=== PATIENT | male | born 1935 | race Caucasian/White ===

== ENCOUNTER 2016-09-26 14:15 | Emergency (ER) | payer MEDICARE, BC ==
[~2016-09-26] VITALS: Ht 162.6 cm; Wt 68.0 kg
[~2016-09-26 14:15] MED LIST: ALLO100T PO; AMAN100C18 PO; AMIO200T2 PO; ANTI1CAP2 PO; ASPI-983 PO; CARB1TAB17 PO; CARB1TAB19; CARB1TAB19 PO; CHOL4PAC2 PO; DIAZ5TAB3 PO; DIPH25CA79 PO; DONE10TA41 PO; FERR-84 PO; FLUT16SP22 NS; FURO40TA4 PO; HYDR-700 PO; HYDR50CA PO; IBUP-30 PO; L.AC1CAP6 PO; LIOT5TAB3 PO; MELA1TAB20 PO; METH4TAB PO; METO-333 PO; NF-PIME1% TP; PANCREAZE DR 41 EACH PO; SCOP1PAT TOP; SPIR25TA3 PO; TAMS0.4C2 PO; TRIA15CR TOP
--- NOTE | 2016-09-26 14:41 | ED Lower Extremity ---
General Chief Complaint: Lower Extremity Stated Complaint: LEFT FOOT REDNESS/SWELLING Nursing Triage Note: BROUGHT IN BY DAUGHTER IN . SHE STATES SHE NOTICED DADS LEFT FOOT BECOMING SWOLLEN ET RED TODAY. CALLED [facility] OFFICE BUT THEY DID NOT RETURN THE CALL SO SHE BROUGHT HIM HERE. DR HUNTER OFFICE CALLED HER BACK WHILE IN ROOM AND SAID DR WHITTEN THOUGHT IT MIGHT BE GOUT BUT PT DENIES SEVERE PAIN LIKE HE HAS HAD IN THE PAST WITH GOUT. Nursing Sepsis Screen: No Definite Risk Source: patient, family (daughter) Exam Limitations: no limitations History of Present Illness Time seen by provider: 14:40 Initial Comments 81-year-old male patient presents to the emergency department complaints of left foot swelling and erythema. Daughter reports she contacted Dr. Whitten's office, but have not heard back from them and 30 minutes. She decided to bring him to the emergency department to be evaluated. While in the emergency department exam room patient was contacted by Dr. Whitten's office with diagnosis of gout. Daughter refuses gout medication as suggested by Dr. Whitten's office. Denies any known injury. Denies fevers at home. Patient is noted to have a temperature of 100.0F in the ED. Denies h/o DVT. Location Injury Occurred: denies known injury Onset: this morning Pain/Injury Location: left foot Method of Injury: unknown Modifying Factors: Worse With Other (denies modifying factors) Allergies and Home Medications Allergies Coded Allergies: No Known Drug Allergies (Unverified , 03/02/16) Home Medications Allopurinol 100 Mg Tablet 200 MG PO DAILY (Reported) TAKES 2 (100MG) TABLETS Amantadine HCl 100 Mg Capsule #60 1 CAP PO BID (Reported) Amiodarone HCl 200 Mg Tablet 200 MG PO DAILY (Reported) Antiox#10/Om3/Dha/Epa/Lut/Zeax 1 Each Capsule 1 CAP PO DAILY (Reported) Aspirin 81 Mg Tablet.dr 81 MG PO DAILY (Reported) Carbidopa/Levodopa 1 Each Tablet 0.5 TAB PO QID (Reported) TAKES 1/2 (25-100MG) TABLET Cholestyramine (with Sugar) 4 Gm Powd.pack 1 PACKET PO DAILY PRN PRN DIARRHEA ( Reported) Clindamycin HCl 300 Mg Capsule #28 300 MG PO QID Prescribed by: RL ESCOBEDO on 09/26/16 1709 Diphenhydramine HCl 25 Mg Capsule 25-50 MG PO HS PRN PRN SLEEP (Reported) TAKES 1 TO 2 (25MG) CAPSULES Donepezil HCl 10 Mg Tablet 10 MG PO HS (Reported) Ferrous Sulfate 325 Mg Tablet 325 MG PO TID (Reported) Fluticasone Propionate 16 Gm [place].susp 2 SPRAY NS HS PRN PRN DRAINAGE (Reported ) Furosemide 40 Mg Tablet 40 MG PO DAILY (Reported) DR. THACKER INSTRUCTED TO HOLD TODAY 03-02-16 Hydroxyzine HCl 25 Mg Tablet #20 1 TAB PO TID (Reported) Hydroxyzine Pamoate 50 Mg Capsule #20 50 MG PO Q 4-6 HOURS Prescribed by: RAYA LEUNG on 08/28/1655 Ibuprofen 200 Mg Tablet 400 MG PO HS (Reported) TAKES 2 (200MG) TABLETS L.acidoph & Paracasei,B.lactis 1 Each Capsule 1 CAP PO DAILY (Reported) Liothyronine Sodium 5 Mcg Tablet 15 MCG PO DAILY (Reported) TAKES 3 (5MCG) TABLETS Lipase/Protease/Amylase 1 Each Capsule.dr 4,200 UNITS PO AC (Reported) Melatonin/Pyridoxine HCl (B6) 1 Each Tab.mphase 10 MG PO HS (Reported) Methylprednisolone 4 Mg Tab.ds.pk #1 4 MG PO UD Prescribed by: RAYA LEUNG on 08/28/1655 Metoprolol Tartrate 25 Mg Tablet 12.5 MG PO BID (Reported) TAKES 1/2 (25MG) TABLET Pimecrolimus 30 Gm Cream.gm. #1 30 GM TP BID Prescribed by: RAYA LEUNG on 08/28/1655 Scopolamine 1 Each Patch.td72 TOP Q72H PRN PRN NAUSEA (Reported) Spironolactone 25 Mg Tablet 25 MG PO DAILY (Reported) DR. THACKER INSTRUCTED TO HOLD TODAY 03-02-16 Tamsulosin HCl 0.4 Mg Cap.er.24h 0.4 MG PO DAILY (Reported) Triamcinolone Acetonide 15 Gm Cream..g. TOP DAILY PRN PRN ECZEMA (Reported) Constitutional: No chills, No diaphoresis, feverNo malaise Respiratory: coughNo orthopnea, No phlegm, No short of breath, No wheezing Cardiovascular: No chest pain, edema (left foot)No palpitations, No syncope Gastrointestinal: No abdominal pain, No constipation, No diarrhea, loss of appetiteNo nausea, No vomiting Genitourinary: no symptoms reported Musculoskeletal: No joint pain, joint swelling (left foot) Skin: see HPI change in color rash (chronic rash) Psychiatric/Neurological: No Symptoms Reported All Other Systems Reviewed Negative Unless Noted: Yes (Negative excepted noted.) Past Kgdxcmz-Ghqddu-Szjnht Hx Patient Social History Recent Foreign Travel: No Contact w/Someone Who Travel: No Recent Infectious Disease Expo: No Recent Hopitalizations: No Immunizations Up To Date Tetanus Booster (TDap): Unknown Seasonal Allergies Seasonal Allergies: Yes Surgeries HX Surgeries: Yes (implant in L BUTT CHEEK TO HELP WITH WITH BM. ) Surgeries: Cardiac, CABG, Orthopedic Respiratory Hx Respiratory Disorders: No Cardiovascular Hx Cardiac Disorders: Yes Cardiac Disorders: High Cholesterol, Hypertension Neurological Hx Neurological Disorders: Yes Neurological Disorders: Dementia, Vertigo Genitourinary Hx Genitourinary Disorders: Yes (RENAL CANCER) Genitourinary Disorders: Renal Failure Gastrointestinal Hx Gastrointestinal Disorders: Yes Gastrointestinal Disorders: Gastroesophageal Reflux, Lozada's Esophagus, Chronic Constipation Musculoskeletal Hx Musculoskeletal Disorders: Yes Musculoskeletal Disorders: Arthritis Endocrine Hx Endocrine Disorders: No HEENT HX ENT Disorders: Yes (ALLERGIES/SINUS PROBLEMS) Cancer Hx Cancer: Yes Cancer: Kidney Psychosocial Hx Psychiatric Problems: No Integumentary HX Skin/Integumentary Disorder: Yes Skin/Integumentary Disorders: Eczema, Pruritis Reviewed Nursing Assessment Reviewed/Agree w Nursing PMH: Yes Family Medical History Significant Family History: No Pertinent Family Hx Physical Exam Vital Signs Vital Sign - Last 12Hours 09/26/16 14:35 Temp 100.0 Pulse 69 Resp 18 B/P 161/86 Pulse Ox 99 O2 Delivery Room Air Capillary Refill : Less Than 3 Seconds General Appearance: WD/WN no apparent distress Cardiovascular: normal peripheral pulses regular rate, rhythm no murmur Respiratory: lungs clear normal breath sounds no respiratory distress Gastrointestinal: non tender softNo distended Legs: bilateral leg non-tender, bilateral leg normal range of motion, bilateral leg no evidence of injury, bilateral leg other (maculopapular rash of the BLE (daughter reports rash is chronic)) Knees: bilateral knee non-tender, bilateral knee normal range of motion, bilateral knee no evidence of injury, bilateral knee other (maculopapular rash of the BLE (daughter reports rash is chronic)) Ankles: bilateral ankle non-tender, bilateral ankle normal range of motion, bilateral ankle no evidence of injury, bilateral ankle other (maculopapular rash of the BLE (daughter reports rash is chronic)) Feet: bilateral foot non-tender, bilateral foot normal range of motion, bilateral foot no evidence of injury, left foot swelling (1+ pedal edema of the left foot), bilateral foot other (maculopapular rash of the BLE (daughter reports rash is chronic)) Neurologic/Tendon: normal sensation normal motor functions normal tendon functions responds to pain no evidence tendon injury Neurologic/Psychiatric: alert normal mood/affect oriented x 3 Skin: warm/dryNo cyanosis, No cool, No diaphoresis, No mottled, rash ( maculopapular rash of the BLE (daughter reports rash is chronic). erythema, warmth, and 1+ pedal edema of the left foot.) Progress/Results/Core Measures Results/Orders Lab Results Laboratory Tests Test 09/26/16 15:25 09/26/16 16:15 Range/Units Alanine Aminotransferase (ALT/SGPT) < 6 0-55 U/L Albumin 3.5 3.2-4.5 G/DL Alkaline Phosphatase 144 H 40-136 U/L Anion Gap 9 5-14 MMOL/L Aspartate Amino Transf (AST/SGOT) 16 5-34 U/L BUN/Creatinine Ratio 17 Band Neutrophils 0 % Basophils # (Auto) 0.1 0.0-0.1 10^3/uL Basophils % (Manual) 1 % Basophils (%) (Auto) 0 0-10 % Blood Morphology Comment NORMAL Blood Urea Nitrogen 42 H 7-18 MG/DL Calcium Level 9.4 8.5-10.1 MG/DL Carbon Dioxide Level 27 21-32 MMOL/L Chloride Level 107 98-107 MMOL/L Creatinine 2.46 H 0.60-1.30 MG/DL Eosinophils # (Auto) 1.2 H 0.0-0.3 10^3/uL Eosinophils % (Manual) 8 % Eosinophils (%) (Auto) 8 0-10 % Estimat Glomerular Filtration Rate 25 Glucose Level 93 70-105 MG/DL Hematocrit 34 L 40-54 % Hemoglobin 11.2 L 13.3-17.7 G/DL Lactic Acid Level 0.9 0.5-2.0 MMOL/L Lymphocytes # (Auto) 1.1 1.0-4.0 X 10^3 Lymphocytes % (Manual) 11 % Lymphocytes (%) (Auto) 8 L 12-44 % Mean Corpuscular Hemoglobin 32 25-34 PG Mean Corpuscular Hemoglobin Concent 33 32-36 G/DL Mean Corpuscular Volume 98 80-99 FL Mean Platelet Volume 9.8 7.4-10.4 FL Monocytes # (Auto) 1.0 0.0-1.0 X 10^3 Monocytes % (Manual) 3 % Monocytes (%) (Auto) 7 0-12 % Neutrophils # (Auto) 10.6 H 1.8-7.8 X 10^3 Neutrophils % (Manual) 77 % Neutrophils (%) (Auto) 76 H 42-75 % Platelet Count 224 130-400 10^3/uL Potassium Level 4.7 3.6-5.0 MMOL/L Red Blood Count 3.50 L 4.35-5.85 10^6/uL Red Cell Distribution Width 14.1 10.0-14.5 % Sodium Level 143 135-145 MMOL/L Total Bilirubin 0.3 0.1-1.0 MG/DL Total Protein 6.2 L 6.4-8.2 G/DL Uric Acid 5.5 2.6-7.2 MG/DL White Blood Count 14.0 H 4.3-11.0 10^3/uL Urine Bacteria NONE /HPF Urine Bilirubin NEGATIVE NEGATIVE Urine Casts NONE /LPF Urine Clarity SLIGHTLY CLOUDY Urine Color YELLOW Urine Crystals NONE /LPF Urine Culture Indicated NO Urine Glucose (UA) NEGATIVE NEGATIVE Urine Ketones NEGATIVE NEGATIVE Urine Leukocyte Esterase NEGATIVE NEGATIVE Urine Mucus NEGATIVE /LPF Urine Nitrite NEGATIVE NEGATIVE Urine Protein 3+ H NEGATIVE Urine RBC RARE /HPF Urine RBC (Auto) NEGATIVE NEGATIVE Urine Specific [place] 1.010 L 1.016-1.022 Urine Urobilinogen NORMAL NORMAL MG/DL Urine WBC 0-2 /HPF Urine pH 8 5-9 My Orders Orders-RL ESCOBEDO L PA Cbc With Automated Diff (09/26/16 14:55) Comprehensive Metabolic Panel (09/26/16 14:55) Saline Lock/Iv-Start (09/26/16 14:55) Ns Iv 1000 Ml (Sodium Chloride 0.9%) (09/26/16 14:55) Chest 1 View, Ap/Pa Only (09/26/16 14:55) Uric Acid (09/26/16 14:55) Foot, Left, 3 Views (09/26/16 15:06) Manual Differential (09/26/16 15:25) Lactic Acid Analyzer (09/26/16 16:00) Straight Cath (Urinary) (09/26/16 16:19) Clindamycin 900 Mg/50 Ml Ivpb (Cleocin P (09/26/16 16:30) Ua Culture If Indicated (09/26/16 16:28) General/Regular (09/26/16 Lunch) Medications Given in ED Current Medications Medications Dose Ordered Sig/Kathy Route Start Time Stop Time Status Last Admin Dose Admin Clindamycin Phosphate/Dextrose 50 ml @ 100 mls/hr ONCE ONCE IV 09/26/16 16:30 09/26/16 16:59 DC 09/26/16 16:46 100 MLS/HR Sodium Chloride 1,000 ml @ 0 mls/hr Q0M ONCE IV 09/26/16 14:55 09/26/16 14:58 DC 09/26/16 15:31 1,000 MLS/HR Vital Signs/I&O Vital Sign - Last 12Hours 09/26/16 09/26/16 14:35 17:42 Temp 100.0 97.8 Pulse 69 74 Resp 18 18 B/P 161/86 Pulse Ox 99 96 O2 Delivery Room Air Room Air Blood Pressure Mean: 111 Departure Communication Progress Notes Laboratory and diagnostic findings discussed with the patient and family. Plan for discharge to home with oral antibiotics. Patient instructed to follow-up with Dr. Whitten's office in the next 1-2 days for recheck and to call for appointment time. Return precautions were discussed with the patient and family as described in the discharge instructions of this report. All voiced understanding and agree with the treatment plan. Impression Impression: Primary Impression: Cellulitis of left foot excluding toes Additional Impression: Viral upper respiratory illness Disposition: 01 HOME, SELF-CARE Condition: Improved Departure-Patient Inst. Decision time for Depature: 17:08 Referrals: GARCIA WHITTEN DO (PCP/Family) Primary Care Physician Patient Instructions: Cellulitis (Skin Infection), Adult (DC), VIRAL RESP ILLNESS-ADULT Add. Discharge Instructions: All discharge instructions reviewed with patient and/or family. Voiced understanding. Medications as instructed. Continue usual home medications. Drink plenty of fluids. Elevate the left lower extremity on pillows. Ice packs or heating pads if needed for pain. Follow-up with Dr. Whitten in the next 1-2 days for recheck, call tomorrow morning for appointment time. Return to the emergency department for worsened redness, fever, open wound, shortness of air, or any other concerns. Scripts Clindamycin HCl (Cleocin HCl)300 Mg [id number] Mg PO QID #28 CAP Ref 0 Prov:RL ESCOBEDO 09/26/16 RL ESCOBEDO Sep 26, 2016 14:40
[2016-09-26] MEDS ORDERED: NS IV 1000 ML 1,000 ML IV ONE (14:55)
--- NOTE | 2016-09-26 15:38 | Diagnostic Imaging Report ---
EXAMINATION: Portable upright radiograph of the chest. INDICATION: Cough. FINDINGS: The lungs appear clear. The heart size is normal. There is no effusion or pneumothorax. The mediastinum and kalee appear unremarkable. Post CABG changes are seen. There is an old lateral mid left rib fracture. IMPRESSION: No acute process. Dictated by: Dictated on workstation # [id number]
[2016-09-26 15:41] LABS: BASOPHILS # (AUTO) 0.1 10^3/uL (0.0-0.1); BASOPHILS % (AUTO) 0 % (0-10); EOSINOPHILS # (AUTO) 1.2 10^3/uL (0.0-0.3); EOSINOPHILS % (AUTO) 8 % (0-10); LYMPHOCYTES # (AUTO) 1.1 X 10^3 (1.0-4.0); LYMPHOCYTES % (AUTO) 8 % (12-44); MEAN CORPUSCULAR HEMOGLOBIN 32 PG (25-34); MEAN CORPUSCULAR HGB CONC 33 G/DL (32-36); MEAN CORPUSCULAR VOLUME 98 FL (80-99); MEAN PLATELET VOLUME 9.8 FL (7.4-10.4); MONOCYTES % (AUTO) 7 % (0-12); NEUTROPHILS # (AUTO) 10.6 X 10^3 (1.8-7.8); NEUTROPHILS % (AUTO) 76 % (42-75); PLATELET COUNT 224 10^3/uL (130-400); RED CELL DISTRIBUTION WIDTH 14.1 % (10.0-14.5)
--- NOTE | 2016-09-26 15:42 | Diagnostic Imaging Report ---
Three views of the left foot. INDICATION: Left foot swelling and pain. FINDINGS: There is no fracture, dislocation or radiopaque foreign body. Joint alignment is satisfactory. IMPRESSION: Unremarkable exam. Dictated by: Dictated on workstation # [id number]
[2016-09-26 15:57] LABS: ALANINE AMINOTRANSFERASE < 6 U/L (0-55); ALBUMIN 3.5 G/DL (3.2-4.5); ANION GAP 9 MMOL/L (5-14); ASPARTATE AMINO TRANSFERASE 16 U/L (5-34); BILIRUBIN,TOTAL 0.3 MG/DL (0.1-1.0); BLOOD UREA NITROGEN 42 MG/DL (7-18); BUN/CREATININE RATIO 17; CALCIUM 9.4 MG/DL (8.5-10.1); CARBON DIOXIDE 27 MMOL/L (21-32); CHLORIDE 107 MMOL/L (98-107); CREATININE SERUM 2.46 MG/DL (0.60-1.30); GFR ESTIMATED 25; GLUCOSE 93 MG/DL (70-105); POTASSIUM 4.7 MMOL/L (3.6-5.0); SODIUM 143 MMOL/L (135-145); TOTAL PROTEIN 6.2 G/DL (6.4-8.2); URIC ACID 5.5 MG/DL (2.6-7.2)
[2016-09-26 16:11] LABS: BAND NEUTROPHILS 0 %; BASOPHILS % (MANUAL) 1 %; EOSINOPHILS % (MANUAL) 8 %; LYMPHOCYTES % (MANUAL) 11 %; NEUTROPHILS % (MANUAL) 77 %
[2016-09-26] MEDS ORDERED: CLINDAMYCIN 900 MG/50 ML IVPB 50 ML IV ONE (16:30)
[2016-09-26 16:35] LABS: BILIRUBIN,URINE NEGATIVE (NEGATIVE); KETONES,URINE NEGATIVE (NEGATIVE); LEUKOCYTE ESTERASE ,URINE NEGATIVE (NEGATIVE); NITRITE,URINE NEGATIVE (NEGATIVE); PH,URINE 8 (5-9); PROTEIN,URINE 3+ (NEGATIVE); UROBILINOGEN,URINE NORMAL (NORMAL)
[2016-09-26 16:41] LABS: WBC,URINE 0-2 /HPF
[2016-09-26] MEDS ORDERED: CLIN300C3 PO (17:09)
[2016-09-26 17:42] VITALS: BP 136/76
== END 2016-09-26 17:42 | disposition home or self-care (01) ==
LOC: EDUNIT# 14:15 → ER 14:17
DX: L03.116 Cellulitis of left lower limb (principal); J06.9 Acute upper respiratory infection, unspecified; I10 Essential (primary) hypertension; F03.90 Unspecified dementia, unspecified severity, without behavioral disturbance, psychotic disturbance, mood disturbance, and anxiety; Z79.82 Long term (current) use of aspirin; Z79.899 Other long term (current) drug therapy; Z95.1 Presence of aortocoronary bypass graft
CPT/HCPCS: 36415; 51701; 71010; 73630; 80053; 81000; 83605; 84550; 85007; 85027; 96361; 96365

== ENCOUNTER 2017-10-12 21:26 | Emergency (ER) | payer MEDICARE ==
[~2017-10-12] VITALS: Ht 162.6 cm; Wt 68.0 kg
[~2017-10-12 21:26] MED LIST changes: +CLIN300C3 PO
--- OUTSIDE RECORDS SUMMARY | 2017-10-12 21:31 | XMS REPORT | Continuity of Care Document ---
Author Author [facility] Organization [facility] Address Unknown Phone Unavailable Allergies Active Description Code Type Severity Reaction Onset Reported/Identified Relationship to Patient Clinical Status Yes No Allergy Information Available [id number] Drug Allergy Unknown N/A 2015 Yes No Known Drug Allergies [id number] Drug Allergy Unknown N/A 03/02/2016 Medications There is no data. Problems Date Dx Coded Attending Type Code Diagnosis Diagnosed By 12/15/2015 Ot I10 12/15/2015 Ot I25.10 01/05/2016 Ot I10 ESSENTIAL ( PRIMARY) HYPERTENSION 01/05/2016 Ot I25.10 ATHSCL HEART DISEASE OF [place] CORONARY 01/11/2016 Ot I10 ESSENTIAL ( PRIMARY) HYPERTENSION 01/11/2016 Ot I25.10 ATHSCL HEART DISEASE OF [place] CORONARY 01/11/2016 Ot 787.91 DIARRHEA 01/11/2016 Ot I10 ESSENTIAL ( PRIMARY) HYPERTENSION 01/11/2016 Ot I25.10 ATHSCL HEART DISEASE OF [place] CORONARY 01/11/2016 GARCIA GAN DO Ot Z79.899 OTHER GENERAL [place] (CURRENT) DRUG THERAPY 01/12/2016 GARCIA GAN DO Ot Z51.81 ENCOUNTER FOR THERAPEUTIC DRUG LEVEL MON 01/12/2016 GARCIA GAN DO Ot Z79.899 OTHER GENERAL [place] (CURRENT) DRUG THERAPY 01/12/2016 GARCIA GAN DO Ot Z51.81 ENCOUNTER FOR THERAPEUTIC DRUG LEVEL MON 01/12/2016 GARCIA GAN DO Ot Z79.899 OTHER LONG-TERM (CURRENT) DRUG THERAPY 03/02/2016 JO ANN AYALA MD Ot D72.829 ELEVATED WHITE BLOOD CELL COUNT, UNSPECI 03/02/2016 JO ANN AYALA MD Ot N18.9 CHRONIC KIDNEY DISEASE, UNSPECIFIED 03/05/2016 JO ANN AYALA MD Ot D72.829 ELEVATED WHITE BLOOD CELL COUNT, UNSPECI 03/05/2016 JO ANN AYALA MD Ot N18.9 CHRONIC KIDNEY DISEASE, UNSPECIFIED 03/14/2016 GAN GARCIA Marion Ot Z51.81 ENCOUNTER FOR THERAPEUTIC DRUG LEVEL MON 03/14/2016 GAN DO GARCIA Marion Ot Z79.899 OTHER LONG-TERM (CURRENT) DRUG THERAPY 03/22/2016 GANBARTOLO ROSENTHAL GARCIA Marion Ot Z51.81 ENCOUNTER FOR THERAPEUTIC DRUG LEVEL MON 03/22/2016 GAN DO, GARCIA Marion Ot Z79.899 OTHER LONG-TERM (CURRENT) DRUG THERAPY 03/22/2016 KIRSTIE SCHREIBER FACC, ALI FACP CCDS Ot I25.10 ATHSCL HEART DISEASE OF [place] CORONARY 03/22/2016 KIRSTIE SCHREIBER FACC, ALI FACP CCDS Ot I25.10 ATHSCL HEART DISEASE OF [place] CORONARY 03/27/2016 KIRSTIE SCHREIBER FACC, ALI FACP CCDS Ot G20 PARKINSON'S DISEASE 03/27/2016 KIRSTIE SCHREIBER FACC, ALI FACP CCDS Ot I12.9 HYPERTENSIVE CHRONIC KIDNEY DISEASE W ST 03/27/2016 KIRSTIE SCHREIBER FACC, ALI FACP CCDS Ot I25.10 ATHSCL HEART DISEASE OF [place] CORONARY 03/27/2016 KIRSTIE SCHREIBER FACC, ALI FACP CCDS Ot N18.4 CHRONIC KIDNEY DISEASE, STAGE 4 (SEVERE) 04/03/2016 KIRSTIE SCHREIBER FACC, ALI FACP CCDS Ot G20 [place]INSON'S DISEASE 04/03/2016 KIRSTIE SCHREIBER FACC, ALI FACP CCDS Ot I12.9 HYPERTENSIVE CHRONIC KIDNEY DISEASE W ST 04/03/2016 KIRSTIE SCHREIBER FACC, ALI FACP CCDS Ot I25.10 ATHSCL HEART DISEASE OF [place] CORONARY 04/03/2016 KIRSTIE SCHREIBER FACC, ALI FACP CCDS Ot N18.4 CHRONIC KIDNEY DISEASE, STAGE 4 (SEVERE) 04/19/2016 KIRSTIE SCHREIBER FACC, ALI FACP CCDS Ot G20 PARKINSON'S DISEASE 04/19/2016 KIRSTIE SCHREIBER FACC, ALI FACP CCDS Ot I12.9 HYPERTENSIVE CHRONIC KIDNEY DISEASE W ST 04/19/2016 KIRSTIE SCHREIBER FACC, ALI FACP CCDS Ot I25.10 ATHSCL HEART DISEASE OF [place] CORONARY 04/19/2016 KIRSTIE SCHREIBER FACC, ALI FACP CCDS Ot N18.4 CHRONIC KIDNEY DISEASE, STAGE 4 (SEVERE) 05/04/2016 KIRSTIE SCHREIBER FACC, ALI FACP CCDS Ot G20 [place]INSON'S DISEASE 05/04/2016 KIRSTIE SCHREIBER FACC, ALI FACP CCDS Ot I12.9 HYPERTENSIVE CHRONIC KIDNEY DISEASE W ST 05/04/2016 KIRSTIE SCHREIBER FACC, ALI FACP CCDS Ot I25.10 ATHSCL HEART DISEASE OF [place] CORONARY 05/04/2016 KIRSTIE SCHREIBER FACC, ALI FACP CCDS Ot N18.4 CHRONIC KIDNEY DISEASE, STAGE 4 (SEVERE) 05/07/2016 KIRSTIE SCHREIBER FACC, ALI FACP CCDS Ot G20 [place]INSON'S DISEASE 05/07/2016 KIRSTIE SCHREIBER FACC, ALI FACP CCDS Ot I12.9 HYPERTENSIVE CHRONIC KIDNEY DISEASE W ST 05/07/2016 KIRSTIE SCHREIBER FACC, ALI FACP CCDS Ot I25.10 ATHSCL HEART DISEASE OF [place] CORONARY 05/07/2016 KIRSTIE SCHREIBER FAC, ALI FACP CCDS Ot N18.4 CHRONIC KIDNEY DISEASE, STAGE 4 (SEVERE) 08/28/2016 XOCHITL DO, RAYA K Ot F03.90 UNSPECIFIED DEMENTIA WITHOUT BEHAVIORAL 08/28/2016 XOCHITL DO, RAYA K Ot G20 PARKINSON'S DISEASE 08/28/2016 XOCHITL DO, RAYA K Ot I10 ESSENTIAL (PRIMARY) HYPERTENSION 08/28/2016 XOCHITL DO, RAYA K Ot L29.9 PRURITUS, UNSPECIFIED 08/28/2016 XOCHITL DO, RAYA K Ot L30.9 DERMATITIS, UNSPECIFIED 08/28/2016 XOCHITL DO RAYA K Ot T78.40XA ALLERGY, UNSPECIFIED, INITIAL ENCOUNTER 08/28/2016 XOCHILT DO RAYA K Ot Z79.82 LONG-TERM (CURRENT) USE OF ASPIRIN 08/28/2016 XOCHITL DO RAYA K Ot Z79.899 OTHER GENERAL [place] (CURRENT) DRUG THERAPY 08/28/2016 XOCHITL DO RAYA K Ot Z95.1 PRESENCE OF AORTOCORONARY BYPASS GRAFT 08/28/2016 XOCHITL DO RAYA K Ot F03.90 UNSPECIFIED DEMENTIA WITHOUT BEHAVIORAL 08/28/2016 XOCHITL DO, RAYA K Ot G20 [place]INSON'S DISEASE 08/28/2016 XOCHITL DO, RAYA K Ot I10 ESSENTIAL (PRIMARY) HYPERTENSION 08/28/2016 XOCHITL DO, RAYA K Ot L29.9 PRURITUS, UNSPECIFIED 08/28/2016 RAYA LEUNG DO Ot L30.9 DERMATITIS, UNSPECIFIED 08/28/2016 RAYA LEUNG DO Ot T78.40XA ALLERGY, UNSPECIFIED, INITIAL ENCOUNTER 08/28/2016 RAYA LEUNG DO Ot Z79.82 LONG-TERM (CURRENT) USE OF ASPIRIN 08/28/2016 RAYA LEUNG DO Ot Z79.899 OTHER LONG-TERM (CURRENT) DRUG THERAPY 08/28/2016 RAYA LEUNG DO Ot Z95.1 PRESENCE OF AORTOCORONARY BYPASS GRAFT 09/04/2016 Ot 787.91 DIARRHEA 09/04/2016 Ot I10 ESSENTIAL ( PRIMARY) HYPERTENSION 09/04/2016 Ot I25.10 ATHSCL HEART DISEASE OF [place] CORONARY 09/04/2016 GARCIA GAN DO Ot Z51.81 ENCOUNTER FOR THERAPEUTIC DRUG LEVEL MON 09/04/2016 GARCIA GAN DO Ot Z79.899 OTHER GENERAL [place] (CURRENT) DRUG THERAPY 09/04/2016 KIRSTIE SCHREIBER FACC, ALI FACP CCDS Ot G20 [place]'S DISEASE 09/04/2016 KIRSTIE SCHREIBER FACC, ALI FACP CCDS Ot I12.9 HYPERTENSIVE CHRONIC KIDNEY DISEASE W ST 09/04/2016 KIRSTIE SCHREIBER FACC, ALI FACP CCDS Ot I25.10 ATHSCL HEART DISEASE OF [place] CORONARY 09/04/2016 KIRSTIE SCHREIBER FACC, ALI FACP CCDS Ot N18.4 CHRONIC KIDNEY DISEASE, STAGE 4 (SEVERE) 09/26/2016 RL AGUILA Ot F03.90 UNSPECIFIED DEMENTIA WITHOUT BEHAVIORAL 09/26/2016 RL AGUILA Ot I10 ESSENTIAL (PRIMARY) HYPERTENSION 09/26/2016 RL AGUILA Ot J06.9 ACUTE UPPER RESPIRATORY INFECTION, UNSPE 09/26/2016 RL AGUILA Ot L03.116 CELLULITIS OF LEFT LOWER LIMB 09/26/2016 RL AGUILA Ot M25.572 PAIN IN LEFT ANKLE AND JOINTS OF LEFT FO 09/26/2016 RL AGUILA Ot Z79.82 LONG-TERM (CURRENT) USE OF ASPIRIN 09/26/2016 RL AGUILA Ot Z79.899 OTHER LONG-TERM (CURRENT) DRUG THERAPY 09/26/2016 RL AGUILA Ot Z95.1 PRESENCE OF AORTOCORONARY BYPASS GRAFT 09/26/2016 Ot 787.91 DIARRHEA 09/26/2016 Ot I10 ESSENTIAL ( PRIMARY) HYPERTENSION 09/26/2016 Ot I25.10 ATHSCL HEART DISEASE OF [place] CORONARY 09/26/2016 GARCIA GAN DO Ot Z51.81 ENCOUNTER FOR THERAPEUTIC DRUG LEVEL MON 09/26/2016 GARCIA GAN DO Ot Z79.899 OTHER LONG-TERM (CURRENT) DRUG THERAPY 09/26/2016 KIRSTIE SCHREIBER FACC, ALI FACP CCDS Ot G20 [place]'S DISEASE 09/26/2016 KIRSTIE SCHREIBER FACC, ALI FACP CCDS Ot I12.9 HYPERTENSIVE CHRONIC KIDNEY DISEASE W ST 09/26/2016 KIRSTIE SCHREIBER FACElba, ALI FACP CCDS Ot I25.10 ATHSCL HEART DISEASE OF [place] CORONARY 09/26/2016 KIRSTIE SCHREIBER FACC, ALI FACP CCDS Ot N18.4 CHRONIC KIDNEY DISEASE, STAGE 4 (SEVERE) 09/27/2016 RL AGUILA Ot F03.90 UNSPECIFIED DEMENTIA WITHOUT BEHAVIORAL 09/27/2016 RL AGUILA Ot I10 ESSENTIAL (PRIMARY) HYPERTENSION 09/27/2016 RL AGUILA Ot J06.9 ACUTE UPPER RESPIRATORY INFECTION, UNSPE 09/27/2016 RL AGUILA Ot L03.116 CELLULITIS OF LEFT LOWER LIMB 09/27/2016 RL AGUILA Ot M25.572 PAIN IN LEFT ANKLE AND JOINTS OF LEFT FO 09/27/2016 RL AGUILA Ot Z79.82 GENER[place] (CURRENT) USE OF ASPIRIN 09/27/2016 RL AGUILA Ot Z79.899 OTHER LONG-TERM (CURRENT) DRUG THERAPY 09/27/2016 RL AGUILA Ot Z95.1 PRESENCE OF AORTOCORONARY BYPASS GRAFT 09/28/2016 RL AGUILA Ot F03.90 UNSPECIFIED DEMENTIA WITHOUT BEHAVIORAL 09/28/2016 RL AGUILA Ot I10 ESSENTIAL (PRIMARY) HYPERTENSION 09/28/2016 RL AGUILA Ot J06.9 ACUTE UPPER RESPIRATORY INFECTION, UNSPE 09/28/2016 RL AGUILA Ot L03.116 CELLULITIS OF LEFT LOWER LIMB 09/28/2016 RL AGUILA Ot M25.572 PAIN IN LEFT ANKLE AND JOINTS OF LEFT FO 09/28/2016 RL AGUILA Ot Z79.82 GENER[place] (CURRENT) USE OF ASPIRIN 09/28/2016 RL AGUILA L Ot Z79.899 OTHER GENERAL [place] (CURRENT) DRUG THERAPY 09/28/2016 RL AGUILA Ot Z95.1 PRESENCE OF AORTOCORONARY BYPASS GRAFT 10/04/2016 RL AGUILA Ot F03.90 UNSPECIFIED DEMENTIA WITHOUT BEHAVIORAL 10/04/2016 RL AGUILA Ot I10 ESSENTIAL (PRIMARY) HYPERTENSION 10/04/2016 RL AGUILA Ot J06.9 ACUTE UPPER RESPIRATORY INFECTION, UNSPE 10/04/2016 RL AGUILA Ot L03.116 CELLULITIS OF LEFT LOWER LIMB 10/04/2016 RL AGUILA Ot M25.572 PAIN IN LEFT ANKLE AND JOINTS OF LEFT FO 10/04/2016 RL AGUILA Ot Z79.82 GENER[place] (CURRENT) USE OF ASPIRIN 10/04/2016 RL AGUILA Ot Z79.899 OTHER LONG-TERM (CURRENT) DRUG THERAPY 10/04/2016 RL AGUILA Ot Z95.1 PRESENCE OF AORTOCORONARY BYPASS GRAFT 10/05/2016 RL AGUILA Ot F03.90 UNSPECIFIED DEMENTIA WITHOUT BEHAVIORAL 10/05/2016 RL AGUILA Ot I10 ESSENTIAL (PRIMARY) HYPERTENSION 10/05/2016 RL AGUILA Ot J06.9 ACUTE UPPER RESPIRATORY INFECTION, UNSPE 10/05/2016 RL AGUILA Ot L03.116 CELLULITIS OF LEFT LOWER LIMB 10/05/2016 RL AGUILA Ot M25.572 PAIN IN LEFT ANKLE AND JOINTS OF LEFT FO 10/05/2016 RL AGUILA Ot Z79.82 [place] (CURRENT) USE OF ASPIRIN 10/05/2016 RL AGUILA L Ot Z79.899 OTHER LONG-TERM (CURRENT) DRUG THERAPY 10/05/2016 RL AGUILA Ot Z95.1 PRESENCE OF AORTOCORONARY BYPASS GRAFT Procedures There is no data. Results Test Result Range Comprehensive metabolic panel - 08/27/16 22:35 Serum or plasma sodium measurement (moles/volume) 140 mmol/L 135-145 Serum or plasma potassium measurement (moles/volume) 4.0 mmol/L 3.6-5.0 Serum or plasma chloride measurement (moles/volume) 106 mmol/L 98-107 Carbon dioxide 25 mmol/L 21-32 Serum or plasma anion gap determination (moles/volume) 9 mmol/L 5-14 Serum or plasma urea nitrogen measurement (mass/volume) 46 mg/dL 7-18 Serum or plasma creatinine measurement (mass/volume) 2.46 mg/dL 0.60-1.30 Serum or plasma urea nitrogen/creatinine mass ratio 19 NRG Serum or plasma creatinine measurement with calculation of estimated glomerular filtration rate 25 NRG Serum or plasma glucose measurement (mass/volume) 98 mg/dL 70-105 Serum or plasma calcium measurement (mass/volume) 9.6 mg/dL 8.5-10.1 Serum or plasma total bilirubin measurement (mass/volume) 0.4 mg/dL 0.1-1.0 Serum or plasma alkaline phosphatase measurement (enzymatic activity/volume) 137 U/L 40-136 Serum or plasma aspartate aminotransferase measurement (enzymatic activity/ volume) 16 U/L 5-34 Serum or plasma alanine aminotransferase measurement (enzymatic activity/volume ) 10 U/L 0-55 Serum or plasma protein measurement (mass/volume) 6.5 g/dL 6.4-8.2 Serum or plasma albumin measurement (mass/volume) 3.9 g/dL 3.2-4.5 Complete blood count (CBC) with automated white blood cell (WBC) differential - 08/27/16 22:35 Blood leukocytes automated count (number/volume) 14.3 10*3/uL 4.3-11.0 Blood erythrocytes automated count (number/volume) 3.68 10*6/uL 4.35-5.85 Venous blood hemoglobin measurement (mass/volume) 11.7 g/dL 13.3-17.7 Blood hematocrit (volume fraction) 36 % 40-54 Automated erythrocyte mean corpuscular volume 97 [foz_us] 80-99 Automated erythrocyte mean corpuscular hemoglobin (mass per erythrocyte) 32 pg 25-34 Automated erythrocyte mean corpuscular hemoglobin concentration measurement ( mass/volume) 33 g/dL 32-36 Automated erythrocyte distribution width ratio 14.4 % 10.0-14.5 Automated blood platelet count (count/volume) 192 10*3/uL 130-400 Automated blood platelet mean volume measurement 10.1 [foz_us] 7.4-10.4 Automated blood neutrophils/100 leukocytes 74 % 42-75 Automated blood lymphocytes/100 leukocytes 9 % 12-44 Blood monocytes/100 leukocytes 9 % 0-12 Automated blood eosinophils/100 leukocytes 8 % 0-10 Automated blood basophils/100 leukocytes 0 % 0-10 Blood neutrophils automated count (number/volume) 10.6 10*3 1.8-7.8 Blood lymphocytes automated count (number/volume) 1.3 10*3 1.0-4.0 Blood monocytes automated count (number/volume) 1.3 10*3 0.0-1.0 Automated eosinophil count 1.1 10*3/uL 0.0-0.3 Automated blood basophil count (count/volume) 0.0 10*3/uL 0.0-0.1 Complete blood count (CBC) with automated white blood cell (WBC) differential - 09/26/16 15:25 Blood leukocytes automated count (number/volume) 14.0 10*3/uL 4.3-11.0 Blood erythrocytes automated count (number/volume) 3.50 10*6/uL 4.35-5.85 Venous blood hemoglobin measurement (mass/volume) 11.2 g/dL 13.3-17.7 Blood hematocrit (volume fraction) 34 % 40-54 Automated erythrocyte mean corpuscular volume 98 [foz_us] 80-99 Automated erythrocyte mean corpuscular hemoglobin (mass per erythrocyte) 32 pg 25-34 Automated erythrocyte mean corpuscular hemoglobin concentration measurement ( mass/volume) 33 g/dL 32-36 Automated erythrocyte distribution width ratio 14.1 % 10.0-14.5 Automated blood platelet count (count/volume) 224 10*3/uL 130-400 Automated blood platelet mean volume measurement 9.8 [foz_us] 7.4-10.4 Automated blood neutrophils/100 leukocytes 76 % 42-75 Automated blood lymphocytes/100 leukocytes 8 % 12-44 Blood monocytes/100 leukocytes 7 % 0-12 Automated blood eosinophils/100 leukocytes 8 % 0-10 Automated blood basophils/100 leukocytes 0 % 0-10 Blood neutrophils automated count (number/volume) 10.6 10*3 1.8-7.8 Blood lymphocytes automated count (number/volume) 1.1 10*3 1.0-4.0 Blood monocytes automated count (number/volume) 1.0 10*3 0.0-1.0 Automated eosinophil count 1.2 10*3/uL 0.0-0.3 Automated blood basophil count (count/volume) 0.1 10*3/uL 0.0-0.1 Comprehensive metabolic panel - 09/26/16 15:25 Serum or plasma sodium measurement (moles/volume) 143 mmol/L 135-145 Serum or plasma potassium measurement (moles/volume) 4.7 mmol/L 3.6-5.0 Serum or plasma chloride measurement (moles/volume) 107 mmol/L 98-107 Carbon dioxide 27 mmol/L 21-32 Serum or plasma anion gap determination (moles/volume) 9 mmol/L 5-14 Serum or plasma urea nitrogen measurement (mass/volume) 42 mg/dL 7-18 Serum or plasma creatinine measurement (mass/volume) 2.46 mg/dL 0.60-1.30 Serum or plasma urea nitrogen/creatinine mass ratio 17 NRG Serum or plasma creatinine measurement with calculation of estimated glomerular filtration rate 25 NRG Serum or plasma glucose measurement (mass/volume) 93 mg/dL 70-105 Serum or plasma calcium measurement (mass/volume) 9.4 mg/dL 8.5-10.1 Serum or plasma total bilirubin measurement (mass/volume) 0.3 mg/dL 0.1-1.0 Serum or plasma alkaline phosphatase measurement (enzymatic activity/volume) 144 U/L 40-136 Serum or plasma aspartate aminotransferase measurement (enzymatic activity/ volume) 16 U/L 5-34 Serum or plasma alanine aminotransferase measurement (enzymatic activity/volume ) < U/L 0-55 Serum or plasma protein measurement (mass/volume) 6.2 g/dL 6.4-8.2 Serum or plasma albumin measurement (mass/volume) 3.5 g/dL 3.2-4.5 Serum or plasma uric acid measurement (mass/volume) - 09/26/16 15:25 Serum or plasma uric acid measurement (mass/volume) 5.5 mg/dL 2.6-7.2 Blood manual differential performed detection - 09/26/16 15:25 Blood monocytes/100 leukocytes 3 % NRG Manual blood segmented neutrophils/100 leukocytes 77 % NRG Blood band neutrophils/100 leukocytes 0 % NRG Manual blood lymphocytes/100 leukocytes 11 % NRG Manual eosinophils/100 leukocytes in nose 8 % NRG Manual blood basophils/100 leukocytes 1 % NRG Blood erythrocyte morphology finding identification NORMAL NRG Blood lactic acid measurement (moles/volume) - 09/26/16 15:25 Blood lactic acid measurement (moles/volume) 0.9 mmol/L 0.5-2.0 Complete urinalysis with reflex to culture - 09/26/16 16:15 Urine color determination YELLOW NRG Urine clarity determination SLIGHTLY CLOUDY NRG Urine pH measurement by test strip 8 5-9 Specific gravity of urine by test strip 1.010 1.016- 1.022 Urine protein assay by test strip, semi-quantitative 3+ NEGATIVE Urine glucose detection by automated test strip NEGATIVE NEGATIVE Erythrocytes detection in urine sediment by light microscopy NEGATIVE NEGATIVE Urine ketones detection by automated test strip NEGATIVE NEGATIVE Urine nitrite detection by test strip NEGATIVE NEGATIVE Urine total bilirubin detection by test strip NEGATIVE NEGATIVE Urine urobilinogen measurement by automated test strip (mass/volume) NORMAL NORMAL Urine leukocyte esterase detection by dipstick NEGATIVE NEGATIVE Automated urine sediment erythrocyte count by microscopy (number/high power field) RARE NRG Automated urine sediment leukocyte count by microscopy (number/high power field ) [HPF] NRG Bacteria detection in urine sediment by light microscopy NONE NRG Crystals detection in urine sediment by light microscopy NONE NRG Casts detection in urine sediment by light microscopy NONE NRG Mucus detection in urine sediment by light microscopy NEGATIVE NRG Complete urinalysis with reflex to culture NO NRG Encounters ACCT No. Visit Date/Time Discharge Status Pt. Type Provider Facility Loc./Unit Complaint [id number] 09/26/2016 14:17:00 09/26/2016 17:42:00 DIS Emergency RL AGUILA [facility] ER LEFT FOOT REDNESS/ SWELLING [id number] 08/27/2016 22:05:00 08/28/2016 01:09:00 DIS Emergency RAYA LEUNG DO [facility] ER ALLERGIC REACTION [id number] 03/22/2016 13:42:00 03/22/2016 23:59:59 CLS Outpatient KIRSTIE SCHREIBER FACC, HELLEN ALMAZAN CCDS [facility] CARD CAD, [place] DISEASE,HTN,CKD STAGE 4 [id number] 03/02/2016 13:40:00 03/02/2016 21:14:00 DIS Emergency JAMIE SCHREIBER, JO ANN Ferrara [facility] ER IRR LAB RESULTS [id number] 01/11/2016 15:11:00 01/11/2016 23:59:59 CLS Outpatient GARCIA GAN DO [facility] RT CURRENT [place] MED USE [id number] 12/12/2015 06:43:00 Document Registration [id number] 02/17/2014 11:52:00 Document Registration
--- NOTE | 2017-10-12 21:57 | ED Lower Extremity ---
General Chief Complaint: Trauma-Non Activation Stated Complaint: FELL, INJ L ELBOW Nursing Triage Note: patient scooted out of chair falling to floor. landing on his bottom. abrasion noted to L elbow. Nursing Sepsis Screen: No Definite Risk Source: patient Exam Limitations: no limitations History of Present Illness Date Seen by Provider: Oct 12, 2017 Time Seen by Provider: 21:56 Initial Comments To ER with follow home. Slid out of his chair landing on his buttocks. Did not hit his head. He has a skin tear to the medial aspect of the left elbow. Tetanus is not up-to-date. Does have some pain in his left hip initially but that is gone now. A history of avascular necrosis left hip. Onset: just prior to arrival Severity: moderate Pain/Injury Location: left hip Method of Injury: fell Modifying Factors: Worse With Movement Allergies and Home Medications Allergies Coded Allergies: No Known Drug Allergies (Unverified , 03/02/16) Home Medications Allopurinol 100 Mg Tablet, 200 MG PO DAILY, (Reported) TAKES 2 (100MG) TABLETS Amantadine HCl 100 Mg Capsule, 1 CAP PO BID, #60 (Reported) Amiodarone HCl 200 Mg Tablet, 200 MG PO DAILY, (Reported) Antiox#10/Om3/Dha/Epa/Lut/Zeax 1 Each Capsule, 1 CAP PO DAILY, (Reported) Aspirin 81 Mg Tablet.dr, 81 MG PO DAILY, (Reported) Carbidopa/Levodopa 1 Each Tablet, 0.5 TAB PO QID, (Reported) TAKES 1/2 (25-100MG) TABLET Cholestyramine (with Sugar) 4 Gm Powd.pack, 1 PACKET PO DAILY PRN for DIARRHEA, (Reported) Clindamycin HCl 300 Mg Capsule, 300 MG PO QID, #28 Ref 0 Prescribed by: RL ESCOBEDO on 09/26/16 1709 Diphenhydramine HCl 25 Mg Capsule, 25-50 MG PO HS PRN for SLEEP, (Reported) TAKES 1 TO 2 (25MG) CAPSULES Donepezil HCl 10 Mg Tablet, 10 MG PO HS, (Reported) Ferrous Sulfate 325 Mg Tablet, 325 MG PO TID, (Reported) Fluticasone Propionate 16 Gm Sumner.susp, 2 SPRAY NS HS PRN for DRAINAGE, ( Reported) Furosemide 40 Mg Tablet, 40 MG PO DAILY, (Reported) DR. THACKER INSTRUCTED TO HOLD TODAY 6-24-16 Hydroxyzine HCl 25 Mg Tablet, 1 TAB PO TID, #20 (Reported) Hydroxyzine Pamoate 50 Mg Capsule, 50 MG PO Q 4-6 HOURS , #20 Prescribed by: RAYA LEUNG on 08/28/166 Ibuprofen 200 Mg Tablet, 400 MG PO HS, (Reported) TAKES 2 (200MG) TABLETS L.acidoph & Paracasei,B.lactis 1 Each Capsule, 1 CAP PO DAILY, (Reported) Liothyronine Sodium 5 Mcg Tablet, 15 MCG PO DAILY, (Reported) TAKES 3 (5MCG) TABLETS Lipase/Protease/Amylase 1 Each Capsule.dr, 4,200 UNITS PO AC, (Reported) Melatonin/Pyridoxine HCl (B6) 1 Each Tab.mphase, 10 MG PO HS, (Reported) Methylprednisolone 4 Mg Tab.ds.pk, 4 MG PO UD, #1 Prescribed by: RAYA LEUNG on 08/28/16 0056 Metoprolol Tartrate 25 Mg Tablet, 12.5 MG PO BID, (Reported) TAKES 1/2 (25MG) TABLET Pimecrolimus 30 Gm Cream.gm., 30 GM TP BID, #1 Prescribed by: RAYA LEUNG on 08/28/16 0056 Scopolamine 1 Each Patch.td72, TOP Q72H PRN for NAUSEA, (Reported) Spironolactone 25 Mg Tablet, 25 MG PO DAILY, (Reported) DR. THACKER INSTRUCTED TO HOLD TODAY 03-02-16 Tamsulosin HCl 0.4 Mg Cap.er.24h, 0.4 MG PO DAILY, (Reported) Triamcinolone Acetonide 15 Gm Cream..g., TOP DAILY PRN for ECZEMA, (Reported) Constitutional: see HPI EENTM: see HPI Respiratory: no symptoms reported Cardiovascular: no symptoms reported Genitourinary: no symptoms reported Musculoskeletal: see HPI Skin: no symptoms reported Past Jpudzqg-Kfdemd-Ruhlbs Hx Patient Social History Alcohol Use: Denies Use Recreational Drug Use: No Recent Foreign Travel: No Contact w/Someone Who Travel: No Recent Infectious Disease Expo: No Recent Hopitalizations: No Immunizations Up To Date Tetanus Booster (TDap): Unknown Seasonal Allergies Seasonal Allergies: Yes Surgeries History of Surgeries: Yes (implant in L BUTT CHEEK TO HELP WITH WITH BM. ) Surgeries: Cardiac, CABG, Orthopedic Respiratory History of Respiratory Disorde: No Cardiovascular History of Cardiac Disorders: Yes Cardiac Disorders: High Cholesterol, Hypertension Neurological History of Neurological Disord: Yes Neurological Disorders: Dementia, Vertigo Genitourinary Genitourinary Disorders: Renal Failure Gastrointestinal History of Gastrointestinal Di: Yes Gastrointestinal Disorders: Gastroesophageal Reflux, Lozada's Esophagus, Chronic Constipation Musculoskeletal History of Musculoskeletal Dis: Yes Musculoskeletal Disorders: Arthritis Endocrine History of Endocrine Disorders: No Cancer History of Cancer: Yes Cancer: Kidney Psychosocial History of Psychiatric Problem: No Integumentary History of Skin or Integumenta: Yes Skin/Integumentary Disorders: Eczema, Pruritis Family Medical History Significant Family History: No Pertinent Family Hx Physical Exam Vital Signs Vital Sign - Last 12Hours 10/12/17 21:34 Temp 98.2 Pulse 62 Resp 18 B/P (MAP) 149/71 (97) Pulse Ox 95 O2 Delivery Room Air Capillary Refill : Less Than 3 Seconds General Appearance: WD/WN, no apparent distress HEENT: PERRL/EOMI, normal ENT inspection Neck: non-tender, full range of motion Respiratory: no respiratory distress, no accessory muscle use Hips: left hip non-tender, left hip normal inspection Legs: bilateral leg non-tender, bilateral leg normal inspection, bilateral leg normal range of motion Knees: bilateral knee non-tender, bilateral knee normal inspection, bilateral knee normal range of motion Ankles: bilateral ankle non-tender, bilateral ankle normal inspection, bilateral ankle normal range of motion Feet: bilateral foot non-tender, bilateral foot normal range of motion, bilateral foot no evidence of injury Neurologic/Psychiatric: alert, normal mood/affect, oriented x 3 Skin: normal color, warm/dry Comments There is a 2 cm superficial skin tear to the medial aspect of the left elbow covered with triple and glottic ointment nonadherent and Coban. 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 Pelvis With Left Hip 2-3 Views (10/12/17 21:54) Dipht,Pertuss(Acell),Tet Adult (Boostrix (10/12/17 22:00) Medications Given in ED Current Medications Medications Dose Ordered Sig/Kathy Route Start Time Stop Time Status Last Admin Dose Admin Diphtheria/ Tetanus/Acell Pertussis 0.5 ml ONCE ONCE IM 10/12/17 22:00 10/12/17 22:01 DC 10/12/17 22:06 0.5 ML Vital Signs/I&O Vital Sign - Last 12Hours 10/12/17 21:34 Temp 98.2 Pulse 62 Resp 18 B/P (MAP) 149/71 (97) Pulse Ox 95 O2 Delivery Room Air Blood Pressure Mean: 97 Departure Impression Impression: Primary Impression: Skin tear Disposition: HOME, SELF-CARE Condition: Stable Departure-Patient Inst. Decision time for Depature: 21:57 Referrals: GARCIA GAN DO (PCP/Family) Primary Care Physician Patient Instructions: NO INSTRUCTIONS GIVEN Add. Discharge Instructions: 1. Change the dressing on the elbow skin tear daily. Return to ER for any concerns 3. All discharge instructions reviewed with patient and/or family. Voiced understanding. RACHEAL VILLRAREAL APRN Oct 12, 2017 21:57
[2017-10-12] MEDS ORDERED: TETANUS,DIPTH,PERTUSS P/F (BOOSTRIX) 0.5 ML VIAL IM ONE (22:00)
[2017-10-12 22:45] VITALS: BP 149/71
--- NOTE | 2017-10-13 09:22 | Diagnostic Imaging Report ---
INDICATION: History of left-sided avascular necrosis. Fall. FINDINGS: There is chronic flattening demonstrated of the left femoral head with a chronically subluxed/dislocated left hip. There is no evidence to suggest an acute fracture. The right hip demonstrates moderate to severe osteoarthritis. There is no evidence of pubic symphysis or SI joint diastases. There are prior operative changes of lower lumbar laminectomies. IMPRESSION: 1. Flattened appearance of the left femoral head with a subluxed/dislocated left hip. Given the sclerosis within the left femoral head and acetabulum and the morphology of the acetabulum this appears to be long-standing chronic process related to the patient's history of left hip AVN. 2. No acute fracture is demonstrated. Dictated by: Dictated on workstation # [id number]
== END 2017-10-12 22:45 | disposition home or self-care (01) ==
LOC: EDUNIT# 21:26 → ER 21:27
DX: S51.002A Unspecified open wound of left elbow, initial encounter (principal); E78.00 Pure hypercholesterolemia, unspecified; I10 Essential (primary) hypertension; K21.9 Gastro-esophageal reflux disease without esophagitis; Z87.19 Personal history of other diseases of the digestive system; Z85.528 Personal history of other malignant neoplasm of kidney; Z79.82 Long term (current) use of aspirin; Z23 Encounter for immunization; Z79.52 Long term (current) use of systemic steroids; Z95.1 Presence of aortocoronary bypass graft; W07.XXXA Fall from chair, initial encounter
CPT/HCPCS: 90471; 90715; 99284